=== PATIENT | male | born 1965 | race Caucasian/White ===

== ENCOUNTER 2018-11-06 10:25 | Outpatient (CLI) | payer BC ==
--- NOTE | 2018-11-06 13:12 | MRI ---
MRI RIGHT SHOULDER: DATE: 11/06/2018. PROVIDED CLINICAL HISTORY: Right shoulder pain. FINDINGS: There is full-thickness, partial width tearing involving the anterior distal supraspinatus tendon at the footplate. There is high-grade partial thickness undersurface tearing involving the cranial fibe rs of the subscapularis tendon near the lesser tuberosity insertion. There is high-grade partial-thi ckness attenuating tearing involving the intraarticular and proximal bicipital groove segments of the long head biceps tendon. The teres minor and infraspinatus tendons appear intact. The glenoid labrum and glenohumeral articular cartilage are suboptimally evaluated in the absence of joint distention. There is a moderate glenohumeral joint effusion with greater than physiologic suba cromial subdeltoid bursal fluid. Rotator cuff muscular volume appears preserved. Acromioclavicular joint osteoarthrosis is prominent with mild mass effect upon the subjacent supraspi natus. IMPRESSION: 1. Tears of the supraspinatus and subscapularis tendons as described. 2. High-grade partial thickness attenuating tear involving the long head biceps tendon as above. 3. Moderate glenohumeral joint effusion. 4. Acromioclavicular joint osteoarthrosis. POS: [facility]
== END 2018-11-06 10:26 | disposition home or self-care (01) ==
LOC: TBSIIMAG 10:25
PROVIDERS: ATTEND Anesthesiology Pain Medicine
DX: M25.511 Pain in right shoulder (principal); M75.101 Unspecified rotator cuff tear or rupture of right shoulder, not specified as traumatic; S46.911A Strain of unspecified muscle, fascia and tendon at shoulder and upper arm level, right arm, initial encounter; S46.211A Strain of muscle, fascia and tendon of other parts of biceps, right arm, initial encounter; M25.411 Effusion, right shoulder; M19.011 Primary osteoarthritis, right shoulder

== ENCOUNTER 2021-03-16 07:36 | Outpatient (CLI) | payer BC | END 2021-03-16 07:37 | disposition home or self-care (01) | LOC: TBSIIMAG 07:36 | PROVIDERS: ATTEND Anesthesiology Pain Medicine | DX: M47.22 Other spondylosis with radiculopathy, cervical region (principal); M79.671 Pain in right foot | CPT/HCPCS: 72141 ==

== ENCOUNTER 2021-04-01 17:41 | Observation (INO) | payer BC ==
[2021-04-01 18:16] LABS: #Eosinphils 0.1 thou/uL (0.0-0.7); #Lymphocytes 2.3 thou/uL (1.20-3.40); #Monocytes 0.6 thou/uL (0.11-0.59); #Neutrophils 9.1 thou/uL (1.40-6.50); %Basophils 0.4 % (0.0-1.0); %Eosinophils 0.6 % (0.0-10.0); %Lymphocytes 19.1 % (21.0-51.0); %Monocytes 5.1 % (0.0-10.0); %Neutrophils 74.8 % (42.0-75.0); Mean Corpuscular HGB CONC 32.8 g/dL (32.0-36.0); Mean Corpuscular Hemoglobin 29.5 pg (27.0-31.0); Mean Corpuscular Volume 89.9 fL (78.0-98.0); Mean Platelet Volume 7.4 fL (7.4-10.4); Platelet Count 306 thou/uL (130-400); Red Blood Cell (RBC) Count 5.43 mill/uL (4.70-6.10); White Blood Cell (WBC) Count 12.2 thou/uL (4.8-10.8)
[2021-04-01 18:36] LABS: ALT (SGPT) 24 U/L (8-55); AST (SGOT) 15 U/L (5-34); Albumin 4.2 g/dL (3.5-5.0); Alkaline Phosphatase 55 U/L (40-110); Anion Gap 15 mmol/L (10-20); BUN (Urea Nitrogen) 20 mg/dL (8.4-25.7); Bilirubin, Total 0.4 mg/dL (0.2-1.2); Calc. Creatinine Clearance 0 mL/min (70-130); Calcium 9.3 mg/dL (7.8-10.44); Carbon Dioxide 25 mmol/L (22-29); Chloride 101 mmol/L (98-107); Globulin 3.2 g/dL (2.4-3.5); Glucose 192 mg/dL (70-105); Lipase 29 U/L (8-78); Potassium 4.3 mmol/L (3.5-5.1); Protein, Total 7.4 g/dL (6.0-8.3); Sodium 137 mmol/L (136-145)
[2021-04-01] MEDS ORDERED: Morphine 4 MG/ML VIAL ONE (18:47)
[2021-04-01] MEDS ORDERED: Ondansetron PF 4 MG/2 ML Vial ONE (18:47)
[2021-04-01] MEDS ORDERED: HYDROcodone/Acetaminophen 7.5/325 mg Tablet ONE (21:49)
[2021-04-01 22:22] LABS: SARS-CoV-2 NAA Rapid Test Not Detected (NotDetected)
[2021-04-01] MEDS ORDERED: HYDROcodone/Acetaminophen 7.5/325 mg Tablet PO PRN (23:22)
[2021-04-01] MEDS ORDERED: Ondansetron ODT 4 MG TAB SL PRN (23:30)
[2021-04-01] MEDS ORDERED: Ondansetron PF 4 MG/2 ML Vial IVP PRN (23:30)
[2021-04-01] MEDS ORDERED: Acetaminophen 325 MG TAB PO PRN (23:30)
[2021-04-02] MEDS ORDERED: Ondansetron PF 4 MG/2 ML Vial IVP PRN (00:19)
[2021-04-02] MEDS ORDERED: Acetaminophen 325 MG TAB PO PRN (00:21)
[2021-04-02 00:22] VITALS: BMI 36.8
[2021-04-02] MEDS ORDERED: Dextrose 50% Abboject 50 ML SYRINGE IVP PRN (00:30)
[2021-04-02] MEDS ORDERED: Insulin Regular 300 UNITS/3 ML VIAL SC PRN (00:30)
[2021-04-02] MEDS ORDERED: Dextrose 5% in Water 1,000 ML IV PRN (00:30)
[2021-04-02] MEDS: Ketorolac Tromethamine 30 MG/ML VIAL IVP PRN ×2 (00:34→07:58)
[2021-04-02] MEDS: Sodium Chloride 0.9% 1,000 ML IV SCH ×2 (00:34→11:01)
[2021-04-02] MEDS: Fentanyl 100 MCG/2 ML VIAL SLOW IVP PRN ×4 (01:12→15:32)
[2021-04-02] MEDS: HYDROcodone/Acetaminophen 7.5/325 mg Tablet PO PRN ×2 (03:58→14:59)
[2021-04-02] MEDS ORDERED: Bupivacaine 0.25% HCL 30 ML VIAL ONE (10:16)
[2021-04-02] MEDS ORDERED: Lidocaine 1% w/Epinephrine 1:100K 20 ML VIAL ONE (10:16)
[2021-04-02] MEDS ORDERED: Levofloxacin 500 mg/D5W 100 ml Premix Bag ONE (10:28)
[2021-04-02] MEDS ORDERED: Midazolam HCl 2 mg/2 ml Vial ONE (10:43)
[2021-04-02] MEDS ORDERED: Fentanyl 250 MCG/5 ML VIAL ONE (11:25)
[2021-04-02] MEDS ORDERED: SUGAMMADEX SODIUM 200 MG/2 ML VIAL ONE (11:25)
[2021-04-02] MEDS ORDERED: Dexmedetomidine 200 MCG/2 ML VIAL ONE (11:25)
[2021-04-02] MEDS ORDERED: Ondansetron PF 4 MG/2 ML Vial ONE (11:30)
[2021-04-02] MEDS ORDERED: PROPOFOL 200 MG/20 ML VIAL ONE (11:30)
[2021-04-02] MEDS ORDERED: Dexamethasone 20 MG/5 ML VIAL ONE (11:30)
[2021-04-02] MEDS ORDERED: Labetalol HCl 100 MG/20 ML VIAL ONE (11:30)
[2021-04-02] MEDS ORDERED: Lidocaine 1% PF 5 ML VIAL ONE (11:30)
[2021-04-02] MEDS ORDERED: Rocuronium Bromide 10 MG/ML (10ML VIAL) ONE (11:30)
[2021-04-02] MEDS ORDERED: Fentanyl 100 MCG/2 ML VIAL ONE ×2 (12:33→12:52)
[2021-04-02] MEDS ORDERED: hydrALAZINE 20 MG/ML VIAL ONE (12:49)
[2021-04-02 15:53] VITALS: BP 148/71; TEMP 97.1
[2021-04-02] MEDS ORDERED: Simethicone Chewable 80 MG TAB PO SCH (16:30)
[2021-04-05] MEDS ORDERED: FLU VACC QS2021-22(6MOS UP)/PF 60 MCG/0.5 ML SYRINGE IM ONE (09:00)
== END 2021-04-02 18:10 | disposition home or self-care (01) ==
LOC: ERS 17:41 → SURG A 20:10
PROVIDERS: ADMIT Surgery; ATTEND Surgery
PROC: 0FT44ZZ Resection of Gallbladder, Percutaneous Endoscopic Approach (ICD-10-PCS; principal; 2021-04-02)
DX: K80.12 Calculus of gallbladder with acute and chronic cholecystitis without obstruction (principal); E11.9 Type 2 diabetes mellitus without complications; I10 Essential (primary) hypertension; E66.01 Morbid (severe) obesity due to excess calories; Z68.36 Body mass index [BMI] 36.0-36.9, adult; Z20.822 Contact with and (suspected) exposure to COVID-19; Z88.0 Allergy status to penicillin; Z79.4 Long term (current) use of insulin; Z79.82 Long term (current) use of aspirin; Z79.1 Long term (current) use of non-steroidal anti-inflammatories (NSAID); Z79.899 Other long term (current) drug therapy
CPT/HCPCS: 36415; 36416; 76705; 80053; 83690; 85025; 88304; 96374; 96375; 96376; G0378; J0360; J1100; J1885; J1956; J2250; J2270; J2405; J2704; J3010; J7050; S0020; U0002

== ENCOUNTER 2021-04-11 08:06 | Outpatient (CLI) | payer BC | END 2021-04-11 08:07 | disposition home or self-care (01) | LOC: TBSIIMAG 08:06 | PROVIDERS: ATTEND Anesthesiology Pain Medicine | DX: M47.24 Other spondylosis with radiculopathy, thoracic region (principal) | CPT/HCPCS: 72146 ==

== ENCOUNTER 2021-04-13 11:01 | Emergency (ER) | payer BC ==
[~2021-04-13 11:01] MED LIST: Iopamidol-370 76% 500 ML 1 ML ONE
[2021-04-13] MEDS ORDERED: Morphine 4 MG/ML VIAL ONE (11:34)
[2021-04-13 12:19] LABS: #Basophils 0.1 thou/uL (0.0-0.2); #Eosinphils 0.2 thou/uL (0.0-0.7); #Monocytes 0.6 thou/uL (0.11-0.59); #Neutrophils 4.6 thou/uL (1.40-6.50); %Basophils 1.2 % (0.0-1.0); %Eosinophils 2.6 % (0.0-10.0); %Monocytes 7.6 % (0.0-10.0); %Neutrophils 61.7 % (42.0-75.0); Hemoglobin 15.9 g/dL (14.0-18.0); Mean Corpuscular HGB CONC 33.6 g/dL (32.0-36.0); Mean Corpuscular Hemoglobin 29.8 pg (27.0-31.0); Mean Corpuscular Volume 88.7 fL (78.0-98.0); Mean Platelet Volume 7.5 fL (7.4-10.4); Platelet Count 306 thou/uL (130-400); RBC Distribution Width 12.9 % (11.5-14.5); Red Blood Cell (RBC) Count 5.32 mill/uL (4.70-6.10); White Blood Cell (WBC) Count 7.4 thou/uL (4.8-10.8)
[2021-04-13 12:38] LABS: ALT (SGPT) 42 U/L (8-55); AST (SGOT) 24 U/L (5-34); Albumin 3.9 g/dL (3.5-5.0); Alkaline Phosphatase 59 U/L (40-110); Anion Gap 14 mmol/L (10-20); BUN (Urea Nitrogen) 19 mg/dL (8.4-25.7); Bilirubin, Total 0.6 mg/dL (0.2-1.2); Calc. Creatinine Clearance 0 mL/min (70-130); Carbon Dioxide 24 mmol/L (22-29); Chloride 103 mmol/L (98-107); Globulin 3.5 g/dL (2.4-3.5); Glucose 105 mg/dL (70-105); Lipase 15 U/L (8-78); Potassium 4.6 mmol/L (3.5-5.1); Protein, Total 7.4 g/dL (6.0-8.3); Sodium 136 mmol/L (136-145)
== END 2021-04-13 17:22 | disposition home or self-care (01) ==
LOC: ERS 11:01
DX: K59.00 Constipation, unspecified (principal); E11.9 Type 2 diabetes mellitus without complications; I10 Essential (primary) hypertension; Z79.4 Long term (current) use of insulin; Z79.899 Other long term (current) drug therapy; Z90.49 Acquired absence of other specified parts of digestive tract
CPT/HCPCS: 74177; 78226; 80053; 83690; 85025; 96374; A9537; J2270; Q9967

== ENCOUNTER 2021-05-02 13:33 | Outpatient (CLI) | payer BC | END 2021-05-02 13:34 | disposition home or self-care (01) | LOC: BICCT 13:33 | PROVIDERS: ATTEND Nurse Practitioner Family | DX: S32.009G Unspecified fracture of unspecified lumbar vertebra, subsequent encounter for fracture with delayed healing (principal); M54.14 Radiculopathy, thoracic region; M48.8X4 Other specified spondylopathies, thoracic region | CPT/HCPCS: 72128 ==

== ENCOUNTER 2021-05-10 09:39 | Outpatient (CLI) | payer BC | END 2021-05-10 09:40 | disposition home or self-care (01) | LOC: NM 09:39 | PROVIDERS: ATTEND Anesthesiology Pain Medicine | DX: M89.9 Disorder of bone, unspecified (principal) | CPT/HCPCS: 78306; A9503 ==

== ENCOUNTER 2021-06-02 17:28 | Outpatient (CLI) | payer BC | END 2021-06-02 17:29 | disposition home or self-care (01) | LOC: LABBT 17:28 | PROVIDERS: ATTEND Surgery | DX: Z01.818 Encounter for other preprocedural examination (principal); Z20.822 Contact with and (suspected) exposure to COVID-19 | CPT/HCPCS: 80048; 85027; 85610; 85730; 86850; 86900; 86901; 93005; 93010; U0003; U0005 ==

== ENCOUNTER 2021-06-07 06:19 | Observation (INO) | payer BC ==
[2021-06-02 18:37] LABS: Hemoglobin 16.2 g/dL (13.5-17.5); Mean Corpuscular HGB CONC 33.3 g/dL (32.0-36.0); Mean Corpuscular Hemoglobin 28.9 pg (27.0-33.0); Platelet Count 295 10x3/uL (150-450); RBC Distribution Width 13.9 % (11.5-14.5); White Blood Cell (WBC) Count 7.6 10x3/uL (3.5-10.5)
[2021-06-02 18:54] LABS: PTT 27.7 sec (22.0-33.0); Prothrombin Time 10.6 sec (9.5-12.1)
[2021-06-02 18:57] LABS: Anion Gap 13 mmol/L (10-20); BUN (Urea Nitrogen) 17 mg/dL (8.4-25.7); Calc. Creatinine Clearance 0 mL/min (70-130); Calcium 9.1 mg/dL (7.8-10.44); Carbon Dioxide 24 mmol/L (22-29); Chloride 105 mmol/L (98-107); Glucose 133 mg/dL (70-105); Potassium 4.4 mmol/L (3.5-5.1); Sodium 138 mmol/L (136-145)
[2021-06-03 11:23] LABS: SARS-CoV-2 PCR by NAA Not Detected (NotDetected)
[2021-06-06 10:16] VITALS: BMI 36.6
[2021-06-07] MEDS ORDERED: Thrombin 5000 UNITS/5 ML VIAL ONE (06:35)
[2021-06-07] MEDS ORDERED: Fentanyl 100 MCG/2 ML VIAL ONE ×2 (06:53→10:04)
[2021-06-07] MEDS ORDERED: Dexmedetomidine 200 MCG/2 ML VIAL ONE (06:53)
[2021-06-07] MEDS ORDERED: Midazolam HCl 2 mg/2 ml Vial ONE (07:34)
[2021-06-07] MEDS ORDERED: Levofloxacin 500 mg/D5W 100 ml Premix Bag ONE (07:36)
[2021-06-07] MEDS ORDERED: Clindamycin/D5W 900 mg/50 ml Premix Bag ONE (07:36)
[2021-06-07] MEDS ORDERED: Ketorolac Tromethamine 30 MG/ML VIAL ONE (07:57)
[2021-06-07] MEDS ORDERED: Dexamethasone 20 MG/5 ML VIAL ONE (07:57)
[2021-06-07] MEDS ORDERED: PROPOFOL 200 MG/20 ML VIAL ONE (07:57)
[2021-06-07] MEDS ORDERED: Ondansetron PF 4 MG/2 ML Vial ONE (07:57)
[2021-06-07] MEDS ORDERED: Phenylephrine 10 MG/ML VIAL ONE (07:57)
[2021-06-07] MEDS ORDERED: Rocuronium Bromide 10 MG/ML (10ML VIAL) ONE (07:57)
[2021-06-07] MEDS ORDERED: Lidocaine 1% PF 5 ML VIAL ONE (07:57)
[2021-06-07] MEDS ORDERED: SUGAMMADEX SODIUM 200 MG/2 ML VIAL ONE (09:53)
[2021-06-07] MEDS ORDERED: Acetaminophen/Codeine 30-300mg Tablet PO PRN (10:29)
[2021-06-07] MEDS ORDERED: traMADol HCl 50 MG TAB PO PRN (10:29)
[2021-06-07] MEDS ORDERED: HYDROcodone/Acetaminophen 7.5/325 mg Tablet PO PRN (10:29)
[2021-06-07] MEDS ORDERED: Acetaminophen 325 MG TAB PO PRN (10:29)
[2021-06-07] MEDS ORDERED: Cepastat Lozenges 1 LOZ PO PRN (10:31)
[2021-06-07] MEDS ORDERED: Chloraseptic Spray 180 ml Bottle PO PRN (10:31)
[2021-06-07] MEDS ORDERED: hydrALAZINE 20 MG/ML VIAL SLOW IVP PRN (10:33)
[2021-06-07] MEDS ORDERED: Promethazine HCl 25 MG/ML VIAL IM PRN (10:52)
[2021-06-07] MEDS ORDERED: HYDROmorphone 2 MG/ML VIAL SLOW IVP PRN (10:52)
[2021-06-07] MEDS ORDERED: Ondansetron HCl/PF 4 MG/2 ML Vial IVP PRN (10:52)
[2021-06-07] MEDS ORDERED: Promethazine HCl 25 MG/ML VIAL IVPB PRN (10:52)
[2021-06-07] MEDS: Morphine 4 MG/ML VIAL SLOW IVP PRN ×4 (13:42→20:35)
[2021-06-07] MEDS: HYDROcodone/Acetaminophen 10/325 mg Tablet PO PRN (13:48)
[2021-06-07] MEDS: tiZANidine HCl 4 MG TAB PO PRN ×2 (14:49→22:23)
[2021-06-07] MEDS: Clindamycin/D5W 900 MG in Premix Bag 1 BAG IVPB SCH ×2 (14:49→22:23)
[2021-06-07] MEDS: Artificial Tear Sol 15 ML BOT EA EYE PRN (15:00)
[2021-06-07] MEDS ORDERED: Ketorolac Tromethamine 0.5% Ophth Soln 3 ml Bottle R EYE PRN (17:17)
[2021-06-07] MEDS ORDERED: Ketorolac Tromethamine 0.5% Ophth Soln 3 ml Bottle L EYE PRN (17:17)
[2021-06-07] MEDS ORDERED: rOPINIRole HCl 1 MG TAB PO SCH (21:00)
[2021-06-07] MEDS: Lantus 1000 UNITS/10 ML VIAL SC SCH (22:18)
[2021-06-08] MEDS: Morphine 4 MG/ML VIAL SLOW IVP PRN (00:12)
[2021-06-08] MEDS: Sodium Chloride 0.9% 1,000 ML IV SCH (00:29)
[2021-06-08] MEDS: HYDROcodone/Acetaminophen 10/325 mg Tablet PO PRN ×2 (03:08→08:54)
[2021-06-08] MEDS: Clindamycin/D5W 900 MG in Premix Bag 1 BAG IVPB SCH (06:03)
[2021-06-08] MEDS: tiZANidine HCl 4 MG TAB PO PRN (06:45)
[2021-06-08] MEDS: Artificial Tear Sol 15 ML BOT EA EYE PRN (06:46)
[2021-06-08 08:26] VITALS: BP 127/80; TEMP 97.9
[2021-06-08] MEDS: Lantus 1000 UNITS/10 ML VIAL SC SCH (08:42)
[2021-06-08] MEDS ORDERED: Empagliflozin 25 MG TAB PO SCH (09:00)
[2021-06-08] MEDS ORDERED: Venlafaxine HCl XR 75 MG CAP PO SCH (09:00)
[2021-06-08] MEDS ORDERED: Lorazepam 1 MG TAB PO SCH (09:00)
[2021-06-08] MEDS ORDERED: Losartan 25 MG TAB PO SCH (09:00)
[2021-06-08] MEDS ORDERED: PHENTERMINE HCL 37.5 MG PO SCH (09:00)
[2021-06-08] MEDS ORDERED: CeleCOXIB 100 MG CAP PO SCH (09:00)
[2021-06-08] MEDS ORDERED: Rosuvastatin 20 MG TAB PO SCH (09:00)
[2021-06-14] MEDS ORDERED: Dulaglutide [Trulicity] 1.5 MG/0.5 ML Pen.Injctr SC SCH (09:00)
== END 2021-06-08 12:34 | disposition home or self-care (01) ==
LOC: SDC 06:19 → SURG A 10:33
PROVIDERS: ADMIT Surgery; ATTEND Surgery
PROC: 0RG20A0 Fusion of 2 or more Cervical Vertebral Joints with Interbody Fusion Device, Anterior Approach, Anterior Column, Open Approach (ICD-10-PCS; principal; 2021-06-07)
DX: M48.02 Spinal stenosis, cervical region (principal); M50.00 Cervical disc disorder with myelopathy, unspecified cervical region; M50.10 Cervical disc disorder with radiculopathy, unspecified cervical region; R49.0 Dysphonia; R13.10 Dysphagia, unspecified; Z79.4 Long term (current) use of insulin; Z79.82 Long term (current) use of aspirin; Z79.84 Long term (current) use of oral hypoglycemic drugs; Z79.899 Other long term (current) drug therapy; Z88.0 Allergy status to penicillin; Z20.822 Contact with and (suspected) exposure to COVID-19
CPT/HCPCS: 36416; 76000; 80048; 85027; 85610; 85730; 86850; 86900; 86901; 96365; 96375; 96376; C1713; C1776; G0378; J1100; J1815; J1885; J1956; J2250; J2270; J2370; J2405; J2704; J3010; J3490; U0003; U0005

== ENCOUNTER 2021-07-26 07:54 | Outpatient (CLI) | payer BC | END 2021-07-26 07:55 | disposition home or self-care (01) | LOC: TBSIIMAG 07:54 | PROVIDERS: ATTEND Surgery | DX: M47.22 Other spondylosis with radiculopathy, cervical region (principal); M48.02 Spinal stenosis, cervical region; Z98.1 Arthrodesis status | CPT/HCPCS: 72040 ==

== ENCOUNTER 2022-10-06 13:52 | Emergency (ER) | payer BC ==
[2022-10-06] MEDS ORDERED: Ketorolac Tromethamine 30 MG/ML VIAL ONE (14:56)
== END 2022-10-06 16:23 | disposition home or self-care (01) ==
LOC: ERS 13:52
DX: S09.90XA Unspecified injury of head, initial encounter (principal); M54.2 Cervicalgia; E11.9 Type 2 diabetes mellitus without complications; I10 Essential (primary) hypertension; X58.XXXA Exposure to other specified factors, initial encounter; Z79.4 Long term (current) use of insulin
CPT/HCPCS: 70450; 72125; 72128; 96372; J1885